=== PATIENT | male | born 1990 | race Caucasian/White ===

== ENCOUNTER → 2019-02-24 | Outpatient (REF) | payer OTHER ==
[2019-02-24 22:01] LABS: CHLAMYDIA DNA AMPLIFICATION NEGATIVE (NEGATIVE); GC DNA AMPLIFICATION NEGATIVE (NEGATIVE)
== END ==
LOC: M SFHCLERA 14:30
PROVIDERS: ATTEND Nurse Practitioner Family
DX: R35.0 Frequency of micturition (principal); J00 Acute nasopharyngitis [common cold]

== ENCOUNTER 2019-05-09 12:13 | Emergency (ER) | payer OTHER, SELFPAY ==
[~2019-05-09] VITALS: Ht 188 cm; Wt 97.5 kg
--- NOTE | 2019-05-09 13:56 | REP ---
MAXILLOFACIAL CT WITHOUT CONTRAST: HISTORY: Facial swelling. Minimal mucosal thickening is present in the left ethmoid and left maxillary sinuses. A retention cyst is present in the right maxillary sinus. The remaining sinuses are clear. The ostiomeatal units are patent. The middle and inferior nasal turbinates are partially paradoxical. There is abbi bullosa of the left middle nasal turbinate. There is minimal deviation of the nasal septum to the right. The cribriform plate, medial abdi of the orbits and optic canals are intact. The carotid canals form a segment of the posterolateral abdi of the sphenoid sinus. The sphenoid sinus septum inserts into the left internal carotid canal wall. There is minimal soft tissue swelling overlying the frontal sinuses. IMPRESSION: 1. Sinus mucosal thickening as described above. 2. Right maxillary sinus retention cyst. 3. There is minimal soft tissue swelling over the frontal sinuses. Electronically Signed by Rajeev Ann MD 05/09/2019 02:02 P
[2019-05-09] MEDS ORDERED: MOME50SP NARES (14:14)
[2019-05-09] MEDS ORDERED: AUGM875T28 PO (14:14)
[2019-05-09 14:22] VITALS: BP 132/80
== END 2019-05-09 14:24 | disposition home or self-care (01) ==
LOC: M ED 12:13
DX: F13.90 Sedative, hypnotic, or anxiolytic use, unspecified, uncomplicated (principal); R22.9 Localized swelling, mass and lump, unspecified; J34.89 Other specified disorders of nose and nasal sinuses; F17.200 Nicotine dependence, unspecified, uncomplicated

== ENCOUNTER 2020-01-20 23:01 | Inpatient (IN) | payer MEDICAID, OTHER ==
[~2020-01-20] VITALS: Ht 188 cm; Wt 99.3 kg
[~2020-01-20 23:01] MED LIST: AUGM875T28 PO; MOME50SP NARES
[2020-01-21] VITALS (14 sets, daily range): BP systolic 112–133; BP diastolic 60–71
[2020-01-21 00:46] LABS: ALBUMIN 3.3 GM/DL (3.2-5.2); ALT/SGPT 14 U/L (12-78); BASO # 0.1 10^3/uL (0.0-0.2); BASO % 0.7 % (0.0-1.0); BILIRUBIN,DIRECT < 0.1 MG/DL (0.0-0.2); BILIRUBIN,TOTAL 0.4 MG/DL (0.2-1.0); BLOOD UREA NITROGEN 15 MG/DL (7-18); CALCIUM LEVEL 8.7 MG/DL (8.5-10.1); CARBON DIOXIDE LEVEL 29 MEQ/L (21-32); CHLORIDE LEVEL 110 MEQ/L (98-107); CREATININE FOR GFR 1.23 MG/DL (0.70-1.30); EOS # 0.3 10^3/uL (0.0-0.5); EOS % 4.4 % (0.0-3.0); GLOMERULAR FILTRATION RATE > 60.0 (>60); GLUCOSE, FASTING 110 MG/DL (70-100); HEMATOCRIT 25.9 % (42.0-52.0); HEMOGLOBIN 8.4 g/dl (13.5-17.5); LIPASE 103 U/L (73-393); LYMPH # 2.4 10^3/uL (1.5-5.0); LYMPH % 31.4 % (24.0-44.0); MEAN CORPUSCULAR HGB CONC 32.4 g/dl (32.0-36.5); MEAN CORPUSCULAR VOLUME 92.5 fl (80.0-96.0); MONO # 0.5 10^3/uL (0.0-0.8); MONO % 6.3 % (0.0-5.0); NEUTROPHILS # 4.3 10^3/uL (1.5-8.5); NEUTROPHILS % 56.9 % (36.0-66.0); PLATELET COUNT, AUTOMATED 250 10^3/uL (150-450); POTASSIUM SERUM 4.1 MEQ/L (3.5-5.1); SODIUM LEVEL 141 MEQ/L (136-145); TOTAL PROTEIN 5.8 GM/DL (6.4-8.2); WHITE BLOOD COUNT 7.6 10^3/uL (4.0-10.0)
[2020-01-21] MEDS ORDERED: NS 1,000 ML IV ONE (01:45)
[2020-01-21 02:05] LABS: FERRITIN 20 NG/ML (26-388); IRON (FE) 56 UG/DL (65-175); PERCENT SATURATION 18.7 % (19.7-50.0); TOTAL IRON BINDING CAPACITY 299 UG/DL (250-450)
[2020-01-21] MEDS ORDERED: GASTROGRAFIN SOLUTION 30ML (Q9963) As Ordered ONE (02:29)
[2020-01-21] MEDS: GASTROGRAFIN SOLUTION 30ML PO SCH ×2 (02:30→02:55)
[2020-01-21] MEDS ORDERED: METAL LOCK LOOP XX ONE (03:28)
[2020-01-21] MEDS ORDERED: ISOVUE-370 76% 100ML VIAL (Q9967) As Ordered ONE (03:51)
--- NOTE | 2020-01-21 04:36 | REPVR ---
PROCEDURE INFORMATION: Exam: CT Abdomen And Pelvis With Contrast Exam date and time: 01/21/2020 1:43 AM Age: 29 years old Clinical indication: Other: Gi bleed; Additional info: Po contrast gi bleed TECHNIQUE: Imaging protocol: Computed tomography of the abdomen and pelvis with intravenous contrast. Radiation optimization: All CT scans at this facility use at least one of these dose optimization techniques: automated exposure control; mA and/or kV adjustment per patient size (includes targeted exams where dose is matched to clinical indication); or iterative reconstruction. Contrast material: ISO; Contrast volume: 100 ml; Contrast route: AC; Other contrast: Oral, ggraphin, 600; COMPARISON: No relevant prior studies available. FINDINGS: Liver: Normal. No mass. Gallbladder and bile ducts: Normal. No calcified stones. No ductal dilation. Pancreas: Normal. No ductal dilation. Spleen: Normal. No splenomegaly. Adrenals: Normal. No mass. Kidneys and ureters: Normal. No hydronephrosis. Stomach and bowel: Unremarkable. No obstruction. No mucosal thickening. Appendix: No evidence of appendicitis. Intraperitoneal space: Unremarkable. No free air. No significant fluid collection. Vasculature: Unremarkable. No abdominal aortic aneurysm. Lymph nodes: Unremarkable. No enlarged lymph nodes. Bladder: Unremarkable as visualized. Reproductive: Unremarkable as visualized. Bones/joints: Small L4-L5 disc bulge. Soft tissues: Unremarkable. IMPRESSION: No acute abnormality. Electronically signed by: Isac Andrade On 01/21/2020 04:36:19 AM
[2020-01-21 09:42] LABS: HEMATOCRIT 22.9 % (42.0-52.0); HEMOGLOBIN 7.6 g/dl (13.5-17.5)
[2020-01-21] MEDS ORDERED: diphenhydrAMINE 25 MG CAP PO ONE (12:00)
[2020-01-21] MEDS ORDERED: ACETAMINOPHEN TAB 650MG DOSE (2X325MG) PO ONE (12:00)
[2020-01-21 12:44] LABS: HEMATOCRIT 23.8 % (42.0-52.0); HEMOGLOBIN 7.8 g/dl (13.5-17.5)
--- NOTE | 2020-01-21 12:49 | HPE ---
DATE OF ADMISSION: 01/20/2020 CHIEF COMPLAINT: Rectal bleeding. HISTORY OF PRESENT ILLNESS: This is a 29-year-old male with history of attention deficit hyperactivity disorder (ADHD), depression, obsessive compulsive disorder (OCD), exercised induced asthma, bipolar disorder, prior rectal bleeding, colonoscopy in 2010 which was unremarkable, homosexual male, who presents to the emergency room with a 1-week history of "intense period", bright red blood per rectum with blood gushing out. Patient complained of "foggy brain" increased sleepiness and "without any abdominal pain" but with achiness in the left upper quadrant without fever or chills, without joint pain, muscle pain, unusual oral ulcers, prior history of rectal fissure. No weight loss. No changes in appetite. Patient denies any recent travel outside [facility]. Does not drink any well water. No recent sick contacts with others exhibiting gastroenteritis. Denies ingesting any uncooked chicken or beef. Usually makes his food at home and has been eating healthy for the past year. Patient denies any constipation or history of hemorrhoids. He complains of some shortness of breath going up the stairs. Had previous episode of rectal bleeding for about 1 year about once a week. Described pink-tinged bloody stools. Hemoglobin is 8.4 from prior hemoglobin of 14.8 in 2009. Patient admits to particular sexual practices with his male partner who is present at the bedside and is concerned about any traumatic injury causing the rectal bleeding, previous colonoscopy in [address] Quesada shows a normal colonoscopy. Patient describes some discomfort in the left upper quadrant as soreness and achiness described as 2/10 occasionally, maybe once or twice a day for the past week. No anorexia. Denies any nausea or vomiting. Patient denies hematemesis, coffee-ground emesis. Denied any nonsteroidal anti-inflammatory drug NSAID use. No prior history of peptic ulcer disease, duodenal ulcers, or gastritis. PAST MEDICAL HISTORY: ADHD. Depression. OCD Exercised induced asthma. ALLERGIES: AUGMENTIN, AMOXICILLIN causing gastrointestinal (GI) upset and diarrhea. PAST SURGICAL HISTORY: None. Had a colonoscopy in 2010 which was normal. HOME MEDICATIONS: None. The patient had previously been on Zoloft and Adderall but has not taken that for years. 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 Socially drinks alcohol, vodka with soda and water once very 2 weeks. Quit smoking now down to one or two cigarettes every 2 weeks when he goes to bars. 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 Lives with is male partner with two cats at home. FAMILY HISTORY: Mother with colonic polyps. Maternal grandfather coronary artery disease (CAD), myocardial infarction (CA), automatic implantable cardioverter defibrillator (AICD). Sister with rheumatoid arthritis. REVIEW OF SYSTEMS: Per history of present illness (HPI). 12-point system is otherwise negative. PHYSICAL EXAMINATION: Temperature 99.4, pulse 97, respiratory rate 18, blood pressure 150/75, 98% on room air. Generally, patient is a slight pallor, no icterus or jaundice. Pupils round and reactive, extraocular muscles are intact. Normocephalic, atraumatic. Tongue has minor oral ulcers. Moist mucous membranes. No cervical lymphadenopathy, thyromegaly or jugular venous distention. Lungs are clear to auscultation. No wheezing, rales or rhonchi. Heart: S1, S2, sinus rhythm. No murmurs, rubs or gallops. Abdomen soft, nontender. Positive bowel sounds times four quadrants. No rebound or guarding. Extremities: No cyanosis, clubbing or any pitting edema. LABORATORY DATA: White count 7.6, hemoglobin 8.4, hematocrit 25.9, previous hemoglobin was in 2009 14.8, hematocrit 43.6. No hemoglobin or hematocrit since 2009 for comparison. Platelet count of 250, MCV 92, MCH 30. Sodium 141, potassium 4.1, chloride 110, bicarbonate 29, BUN 15, creatinine 1.23, glucose 110, calcium 8.7, iron 56, TIBC 299, ferritin 20, T bilirubin 0.4, direct bilirubin less than 0.1. AST 12, ALT 14, alkaline phosphatase 38, total protein 5.8, albumin 1.32, lipase 103. Microbiology: GI panel is pending. CT abdomen and pelvis is pending. ASSESSMENT/PLAN: This is a 29-year-old homosexual male with history of rectal fissure, bright red blood per rectum in 2010, evaluated with colonoscopy which was essentially normal, presents with 1-week history of bright red blood per rectum increased dizziness and shortness of breath, found to have hemoglobin of 8.4, prior hemoglobin was in 2009 of 14. IMPRESSION: 1. Acute blood loss anemia secondary to bright red blood per rectum with acute GI bleed. Patient will be admitted. Check orthostatics, IV fluids, type and screen. Transfuse for hemoglobin less than 8 or symptomatic anemia. Patient, at this time did not want to be transfused despite feeling sleepy or short of breath. Check hemoglobin and hematocrit every [address] abdomen and pelvis. Rule out inflammatory bowel disease and infectious diarrhea. Check a serology panel for ulcerative colitis and Crohn's disease. Check sed rate and CRP. No empiric antibiotics until a GI panel has returned. 2. Acute GI bleed secondary to bright red blood per rectum: At this time, patient does not want blood transfusion. Will recheck hemoglobin and hematocrit every 6 hours. Transfuse a needed. Obtain CT abdomen and pelvis if persistent symptomatic anemia. Will strongly encourage to give consent for blood transfusion, possible esophagogastroduodenoscopy (EGD). Will keep with a clears diet for now. Nothing by mouth if patient develops some hematemesis or coffee-ground emesis. 3. History of ADHD, bipolar disorder and OCD. Patient is currently on no medication and says that he does not follow with any psychiatrist or primary care physician. Not exhibiting any homicidal or suicidal ideation. 4. Active smoker. Tobacco cessation counseling is provided. Nicotine gum as needed. 5. Deep venous thrombosis (DVT) prophylaxis: Compression stocking in light of active GI bleed. Avoid heparin and Lovenox products. MTDD
[2020-01-21 13:05] LABS: INR 1.1; PROTHROMBIN TIME 13.9 SECONDS (11.8-14.0)
[2020-01-21] MEDS ORDERED: LIDOCAINE 2% INJ 100 MG/5 ML SDV (FOR ANES.) As Ordered ONE (19:19)
[2020-01-21] MEDS ORDERED: propofoL 200 MG/20 ML VIAL As Ordered ONE (19:19)
--- NOTE | 2020-01-21 20:06 | ROOR ---
Patient Name: Ambrose Bradley Procedure Date: 01/21/2020 7:14 PM Date of : 1990 Age: 29 Gender: Male Note Status: Finalized Procedure: Upper GI endoscopy Indications: Acute post hemorrhagic anemia Providers: Isac OROSCO MD Referring MD: 2. Inpatient 2. Inpatient Requesting Provider: Medicines: Monitored Anesthesia Care Complications: No immediate complications. Procedure: Pre-Anesthesia Assessment: - The heart rate, respiratory rate, oxygen saturations, blood pressure, adequacy of pulmonary ventilation, and response to care were monitored throughout the procedure. The Endoscope was introduced through the mouth, and advanced to the second part of duodenum. The upper GI endoscopy was accomplished without difficulty. The patient tolerated the procedure well. Findings: The esophagus was normal. The stomach was normal. The examined duodenum was normal. Impression: - Normal esophagus. - Normal stomach. - Normal examined duodenum. - There is no evidence of upper GI bleeding on this exam. - No specimens collected. Recommendation: - Meckel scan in am 01/22 - Colonoscopy in pm 01/22 Isac Orosco MD Isac OROSCO MD 01/21/2020 8:05:33 PM Electronically signed by Isac OROSCO MD Number of Addenda: 0 Note Initiated On: 01/21/2020 7:14 PM Estimated Blood Loss: Estimated blood loss: none.
[2020-01-21] MEDS ORDERED: POLYETHYLENE GLYCOL (MIRALAX) 238GM BOTTLE PO ONE (20:15)
[2020-01-21 21:24] LABS: HEMATOCRIT 30.5 % (42.0-52.0)
[2020-01-22] VITALS (13 sets, daily range): BP systolic 109–122; BP diastolic 55–115
[2020-01-22 00:36] LABS: HEMATOCRIT 28.9 % (42.0-52.0); HEMOGLOBIN 9.6 g/dl (13.5-17.5)
[2020-01-22 06:31] LABS: HEMATOCRIT 26.5 % (42.0-52.0); HEMOGLOBIN 8.8 g/dl (13.5-17.5); MEAN CORPUSCULAR HEMOGLOBIN 30.6 pg (27.0-33.0); MEAN CORPUSCULAR HGB CONC 33.2 g/dl (32.0-36.5); PLATELET COUNT, AUTOMATED 213 10^3/uL (150-450); RED BLOOD COUNT 2.88 10^6/uL (4.30-6.10)
[2020-01-22 07:02] LABS: BLOOD UREA NITROGEN 6 MG/DL (7-18); CALCIUM LEVEL 8.5 MG/DL (8.5-10.1); CARBON DIOXIDE LEVEL 28 MEQ/L (21-32); CHLORIDE LEVEL 109 MEQ/L (98-107); GLOMERULAR FILTRATION RATE > 60.0 (>60); GLUCOSE, FASTING 89 MG/DL (70-100); POTASSIUM SERUM 3.7 MEQ/L (3.5-5.1); SODIUM LEVEL 139 MEQ/L (136-145)
--- NOTE | 2020-01-22 10:18 | IPNPDOC ---
Subjective Date Seen The patient was seen on 01/22/20. Subjective Chief Complaint/HPI seen and examined at bedside, asleep but arousable, no specific complaints. General: Reports: Normal Appetite; Denies: Chills, Night Sweats, Fatigue, Malaise Constitutional: Denies: Chills, Fever, Night Sweats Eyes: Denies: Pain, Vision change ENT: Denies: Head Aches, Ear Pain, Dysphagia Skin: Denies: Rash, Lesions, Breakdown Pulmonary: Denies: Dyspnea, Cough Cardiovascular: Denies: Chest Pain, Palpitations, Orthopnea, Paroxysmal Noc. Dyspnea, Lt Headedness Gastrointestinal: Denies: Nausea, Vomiting, Abdominal Pain, Diarrhea, Constipation Genitourinary: Denies: Dysuria, Frequency, Incontinence, Retention Hematologic: Denies: Bruising, Bleeding Excessively Musculoskeletal: Denies: Neck Pain, Back Pain, Joint Pain, Muscle Pain, Spasms Neurological: Denies: Weakness, Numbness, Change in speech, Confusion Psych: Reports: Mood Normal; Denies: Depression, Memory Issues Objective Physical Examination General Exam: Positive: Alert, No Acute Distress Eye Exam: Positive: PERRLA, Conjunctiva & lids normal, EOMI; Negative: Sclera icteric ENT Exam: Positive: Atraumatic, Mucous membr. moist/pink, Pharynx Normal Neck Exam: Positive: Supple; Negative: JVD, thyromegaly Chest Exam: Positive: Clear to auscultation, Normal air movement Heart Exam: Positive: Rate Normal, Regular Rhythm, Normal S1, Normal S2; Negative: Murmurs, Rubs Telemetry: Positive: No significant arrhythmia Abdomen Exam: Positive: Normal bowel sounds, Soft; Negative: Tenderness, Hepatospenomegaly Male Exam: Positive: Normal Genital Exam Extremity Exam: Positive: Normal pulses; Negative: Clubbing, Cyanosis, Edema Skin Exam: Positive: Nl turgor and temperature; Negative: Rash, Breakdown Neuro Exam: Positive: Normal Gait, Normal Speech, Cranial Nerves 3-12 NL, Reflexes 2+ Psych Exam: Positive: Mental status NL, Mood NL, Oriented x 3 Assessment /Plan Assessment 1. GIB - s/p PRBC transfusion, 8.8 today. - GI following, s/p EGD which was negative. - plan for Meckels scan today followed by colonoscopy later today evening. - monitor CBC, transfuse as needed, IV protonix. 2. ADHD/bipolar disorder/OCD - monitor, not on any medications. 3. tobacco use - tobacco cessation counseling. Plan/VTE VTE Prophylaxis Ordered?: Yes VS, I&O, 24H, Fishbone Vital Signs/I&O Vital Signs Date Time Temp Pulse Resp B/P (MAP) Pulse Ox O2 Delivery O2 Flow Rate FiO2 01/22/20 06:00 97.4 65 18 111/67 (82) 99 Room Air I&O- Last 24 Hours up to 6 AM 01/22/20 06:00 Intake Total 4922 ml Output Total 4025 ml Balance 897 ml Laboratory Data 24H LABS Laboratory Tests 2 01/21/20 12:16: Prothrombin Time 13.9, Prothromb Time International Ratio 1.10 01/22/20 06:10: Nucleated Red Blood Cells % (auto) 0.0, Anion Gap 2L, Glomerular Filtration Rate > 60.0, Calcium Level 8.5 CBC/BMP Laboratory Tests 01/21/20 12:16 01/21/20 21:12 01/22/20 00:30 01/22/20 06:10 Microbiology Microbiology 01/21/20 Stool Occult Blood (RON) - Final, Complete 01/21/20 Gastrointestinal Tract Panel (PCR) - Final, Complete CHUCK NORWOOD MD Jan 22, 2020 10:18
--- NOTE | 2020-01-22 12:29 | REP ---
RADIONUCLIDE MECKEL'S SCAN: HISTORY: Evaluate for Meckel's diverticulum. Comparison CT study January 21, 2020. TECHNIQUE: 10.5 mCi technetium 99m pertechnetate is injected and anterior flow and sequential 1-minute images are acquired. Anterior and right lateral planar images are acquired after the initial hour of imaging. SCINTIGRAPHIC FINDINGS: The flow study is normal. Sequential 1-minute images demonstrate no evidence of focal gastrointestinal uptake in the lower abdomen on either side to suggest a gastric mucosa containing Meckel's diverticulum. IMPRESSION: Negative Meckel's scan. Electronically Signed by Geovani Rankin MD 01/22/2020 05:06 P
[2020-01-22 13:28] LABS: HEMATOCRIT 27.1 % (42.0-52.0); HEMOGLOBIN 9.1 g/dl (13.5-17.5)
--- NOTE | 2020-01-22 16:21 | ROOR ---
Patient Name: Amrbose Bradley Procedure Date: 01/22/2020 3:56 PM Date of : 1990 Age: 29 Room: [facility] Gender: Male Note Status: Finalized Procedure: Colonoscopy Indications: Hematochezia, Acute post hemorrhagic anemia Providers: Isac OROSCO MD Referring MD: 2. Inpatient 2. Inpatient Requesting Provider: Medicines: Monitored Anesthesia Care Complications: No immediate complications. Procedure: Pre-Anesthesia Assessment: - The heart rate, respiratory rate, oxygen saturations, blood pressure, adequacy of pulmonary ventilation, and response to care were monitored throughout the procedure. The Colonoscope was introduced through the anus and advanced to 10 cm into the ileum. The colonoscopy was performed without difficulty. The patient tolerated the procedure well. The quality of the bowel preparation was adequate. Findings: The perianal and digital rectal examinations were normal. Internal hemorrhoids were found during retroflexion. The hemorrhoids were moderate. The colon (entire examined portion) appeared normal. The terminal ileum appeared normal. Impression: - Internal hemorrhoids. - The entire examined colon is normal. - The examined portion of the ileum was normal. - No specimens collected. Recommendation: - Suggest referral to a surgeon for Hemorrhoid surgery. - Return to primary care physician as previously scheduled. - Routine follow up with me is not necessary. Can follow up with me as needed. Isac Orosco MD Isac OROSCO MD 01/22/2020 4:21:30 PM Electronically signed by Isac OROSCO MD Number of Addenda: 0 Note Initiated On: 01/22/2020 3:56 PM Estimated Blood Loss: Estimated blood loss: none.
[2020-01-22 18:22] LABS: HEMATOCRIT 27.6 % (42.0-52.0); HEMOGLOBIN 9.1 g/dl (13.5-17.5)
[2020-01-23 00:36] LABS: HEMOGLOBIN 8.6 g/dl (13.5-17.5)
[2020-01-23 02:30] VITALS: BP 118/58
[2020-01-23 06:00] VITALS: BP 121/57
[2020-01-23 07:16] LABS: HEMATOCRIT 23.6 % (42.0-52.0); MEAN CORPUSCULAR HEMOGLOBIN 31.1 pg (27.0-33.0); MEAN CORPUSCULAR HGB CONC 33.9 g/dl (32.0-36.5); MEAN CORPUSCULAR VOLUME 91.8 fl (80.0-96.0); PLATELET COUNT, AUTOMATED 241 10^3/uL (150-450); RED BLOOD COUNT 2.57 10^6/uL (4.30-6.10); WHITE BLOOD COUNT 5.9 10^3/uL (4.0-10.0)
[2020-01-23 07:41] LABS: BLOOD UREA NITROGEN 14 MG/DL (7-18); CALCIUM LEVEL 7.7 MG/DL (8.5-10.1); CARBON DIOXIDE LEVEL 29 MEQ/L (21-32); CHLORIDE LEVEL 110 MEQ/L (98-107); CREATININE FOR GFR 0.98 MG/DL (0.70-1.30); GLOMERULAR FILTRATION RATE > 60.0 (>60); GLUCOSE, FASTING 92 MG/DL (70-100); POTASSIUM SERUM 3.9 MEQ/L (3.5-5.1); SODIUM LEVEL 142 MEQ/L (136-145)
[2020-01-23 10:00] VITALS: BP 120/56
[2020-01-23] MEDS ORDERED: PREP1SUP PR (13:15)
--- NOTE | 2020-01-23 13:16 | DS.PDOC ---
Discharge Summary General Date of Admission Jan 21, 2020 at 15:40 Date of Discharge 01/23/20 Discharge Summary PROCEDURES PERFORMED DURING STAY: Colonoscopy: - Internal hemorrhoids. - The entire examined colon is normal. - The examined portion of the ileum was normal. - No specimens collected. ADMITTING DIAGNOSES: 1. rectal bleed DISCHARGE DIAGNOSES: 1. rectal bleed COMPLICATIONS/CHIEF COMPLAINT: Rectal Bleeding. HISTORY OF PRESENT ILLNESS: Please refer to for detailed HPI. HOSPITAL COURSE: Patient was admitted and treated for the following conditions: 1. GIB - patient received 1U PRBC transfusion. - GI was consulted. - EGD/Meckel's scan negative. - colonoscopy with internal hemorrhoids. - GI recommending follow up with surgery for banding. - case discussed with surgery Dr. Cast, recommending outpatient office follow up on 01/26 for banding procedure. - preparation H suppositories, high fiber diet/fibercon supplement, sitz baths. - Patient is in agreement with plan, advised him to return to the ED should he have persistent rectal bleeding, voices understanding. DISCHARGE MEDICATIONS: Please see below. ALLERGIES: Please see below. PHYSICAL EXAMINATION ON DISCHARGE: VITAL SIGNS: Please see below. GENERAL: AAO x 3, NAD. HEENT: NCAT, anicteric sclera, PERRLA/EOMI NECK: supple, no JVD, no thyromegaly CARDIOVASCULAR EXAMINATION: NS1S2, regular, no murmurs/rubs RESPIRATORY EXAMINATION: CTA b/l, no wheezing, rales, rhonchi. ABDOMINAL EXAMINATION: NT/ND, positive bowel sounds, no masses EXTREMITIES: no cyanosis, clubbing, edema SKIN: warm, no rashes, NEUROLOGICAL EXAMINATION: AAO x 3, no motor/sensory deficits, PSYCHIATRIC EXAMINATION: calm, cooperative, normal affect. LABORATORY DATA: Please see below. IMAGING: none PROGNOSIS: good ACTIVITY: [As tolerated]. DIET: high fiber DISCHARGE PLAN: home DISPOSITION: stable DISCHARGE INSTRUCTIONS: 1. Schedule follow up appointment with surgery Dr. Cast. ITEMS TO FOLLOWUP ON ON OUTPATIENT: 1. none DISCHARGE CONDITION: [Stable]. TIME SPENT ON DISCHARGE: Greater than [30] minutes. Vital Signs/I&Os Vital Signs Date Time Temp Pulse Resp B/P (MAP) Pulse Ox O2 Delivery O2 Flow Rate FiO2 01/23/20 10:00 97.4 94 19 120/56 (77) 96 Room Air I&O- Last 24 Hours up to 6 AM 01/23/20 06:00 Intake Total 360 ml Output Total 1175 ml Balance -815 ml Laboratory Data Labs 24H Laboratory Tests 2 01/23/20 06:48: Nucleated Red Blood Cells % (auto) 0.0, Anion Gap 3L, Glomerular Filtration Rate > 60.0, Calcium Level 7.7L CBC/BMP Laboratory Tests 01/22/20 18:09 01/23/20 00:22 01/23/20 06:48 Microbiology Microbiology 01/21/20 Stool Occult Blood (RON) - Final, Complete 01/21/20 Gastrointestinal Tract Panel (PCR) - Final, Complete Discharge Medications Scheduled Phenylephrine HCl/[place] Butter (Preparation H Suppository) 1 Each Supp.rect, 1 SUP AK BID Allergies Coded Allergies: No Known Allergies (Unverified , 05/09/19) CHUCK NORWOOD MD Jan 23, 2020 13:16
[2020-01-23 14:00] VITALS: BP 138/65
[2020-01-23] MEDS ORDERED: FERR325T3 PO (14:01)
--- NOTE | 2020-01-23 17:16 | IPNPDOC ---
Subjective Date Seen The patient was seen on 01/23/20. Subjective Chief Complaint/HPI seen and examined at bedside, c/o bloody stools still continuing today, anxious about discharge. General: Reports: Normal Appetite; Denies: Chills, Night Sweats, Fatigue, Malaise Constitutional: Denies: Chills, Fever, Night Sweats Eyes: Denies: Pain, Vision change ENT: Denies: Head Aches, Ear Pain, Dysphagia Skin: Denies: Rash, Lesions, Breakdown Pulmonary: Denies: Dyspnea, Cough Cardiovascular: Denies: Chest Pain, Palpitations, Orthopnea, Paroxysmal Noc. Dyspnea, Lt Headedness Gastrointestinal: Denies: Nausea, Vomiting, Abdominal Pain, Diarrhea, Constipation Genitourinary: Denies: Dysuria, Frequency, Incontinence, Retention Hematologic: Denies: Bruising, Bleeding Excessively Musculoskeletal: Denies: Neck Pain, Back Pain, Joint Pain, Muscle Pain, Spasms Neurological: Denies: Weakness, Numbness, Change in speech, Confusion Psych: Reports: Mood Normal; Denies: Depression, Memory Issues Objective Physical Examination General Exam: Positive: Alert, No Acute Distress Eye Exam: Positive: PERRLA, Conjunctiva & lids normal, EOMI; Negative: Sclera icteric ENT Exam: Positive: Atraumatic, Mucous membr. moist/pink, Pharynx Normal Neck Exam: Positive: Supple; Negative: JVD, thyromegaly Chest Exam: Positive: Clear to auscultation, Normal air movement Heart Exam: Positive: Rate Normal, Regular Rhythm, Normal S1, Normal S2; Negative: Murmurs, Rubs Telemetry: Positive: No significant arrhythmia Abdomen Exam: Positive: Normal bowel sounds, Soft; Negative: Tenderness, Hepatospenomegaly Male Exam: Positive: Normal Genital Exam Extremity Exam: Positive: Normal pulses; Negative: Clubbing, Cyanosis, Edema Skin Exam: Positive: Nl turgor and temperature; Negative: Rash, Breakdown Neuro Exam: Positive: Normal Gait, Normal Speech, Cranial Nerves 3-12 NL, Reflexes 2+ Psych Exam: Positive: Mental status NL, Mood NL, Oriented x 3 Assessment /Plan Assessment 1. GIB - Hgb 8 today. - s/p EGD/Meckels scan, negative. - colonoscopy with internal hemorrhoids. - patient with continued episodes of bleeding, anxious about discharge with continuing episodes. - discussed with surgery Dr. Griggs, will see in AM. - start suppositories, monitor CBC. 2. ADHD/bipolar disorder/OCD - monitor, not on any medications. 3. tobacco use - tobacco cessation counseling. Plan/VTE VTE Prophylaxis Ordered?: Yes VS, I&O, 24H, Fishbone Vital Signs/I&O Vital Signs Date Time Temp Pulse Resp B/P (MAP) Pulse Ox O2 Delivery O2 Flow Rate FiO2 01/23/20 14:00 97.6 82 19 138/65 (89) 97 01/23/20 10:00 Room Air I&O- Last 24 Hours up to 6 AM 01/23/20 06:00 Intake Total 360 ml Output Total 1175 ml Balance -815 ml Laboratory Data 24H LABS Laboratory Tests 2 01/23/20 06:48: Nucleated Red Blood Cells % (auto) 0.0, Anion Gap 3L, Glomerular Filtration Rate > 60.0, Calcium Level 7.7L CBC/BMP Laboratory Tests 01/22/20 18:09 01/23/20 00:22 01/23/20 06:48 Microbiology Microbiology 01/21/20 Stool Occult Blood (RON) - Final, Complete 01/21/20 Gastrointestinal Tract Panel (PCR) - Final, Complete CHUCK NORWOOD MD Jan 23, 2020 17:16
[2020-01-23] MEDS: PREPARATION H SUPP (HEMORRHOID) PR SCH (20:04)
[2020-01-23 22:00] VITALS: BP 128/69
[2020-01-24] VITALS (14 sets, daily range): BP systolic 106–135; BP diastolic 56–60
[2020-01-24 07:00] LABS: HEMATOCRIT 22.2 % (42.0-52.0); HEMOGLOBIN 7.4 g/dl (13.5-17.5); MEAN CORPUSCULAR HGB CONC 33.3 g/dl (32.0-36.5); MEAN CORPUSCULAR VOLUME 92.9 fl (80.0-96.0); PLATELET COUNT, AUTOMATED 258 10^3/uL (150-450); RED BLOOD COUNT 2.39 10^6/uL (4.30-6.10); WHITE BLOOD COUNT 6.1 10^3/uL (4.0-10.0)
[2020-01-24 07:26] LABS: BLOOD UREA NITROGEN 13 MG/DL (7-18); CALCIUM LEVEL 8.4 MG/DL (8.5-10.1); CARBON DIOXIDE LEVEL 29 MEQ/L (21-32); CHLORIDE LEVEL 109 MEQ/L (98-107); CREATININE FOR GFR 0.92 MG/DL (0.70-1.30); GLOMERULAR FILTRATION RATE > 60.0 (>60); GLUCOSE, FASTING 93 MG/DL (70-100); POTASSIUM SERUM 4.4 MEQ/L (3.5-5.1); SODIUM LEVEL 141 MEQ/L (136-145)
[2020-01-24] MEDS ORDERED: PREPARATION H SUPP (HEMORRHOID) PR SCH (09:00)
[2020-01-24] MEDS: PREPARATION H SUPP (HEMORRHOID) PR SCH ×4 (09:24→21:00)
--- NOTE | 2020-01-24 14:46 | IPNPDOC ---
Subjective Date Seen The patient was seen on 01/24/20. Subjective Chief Complaint/HPI seen and examined at bedside, still with c/o rectal bleeding, some improvement with suppositories. General: Reports: Normal Appetite; Denies: Chills, Night Sweats, Fatigue, Malaise Constitutional: Denies: Chills, Fever, Night Sweats Eyes: Denies: Pain, Vision change ENT: Denies: Head Aches, Ear Pain, Dysphagia Skin: Denies: Rash, Lesions, Breakdown Pulmonary: Denies: Dyspnea, Cough Cardiovascular: Denies: Chest Pain, Palpitations, Orthopnea, Paroxysmal Noc. Dyspnea, Lt Headedness Gastrointestinal: Denies: Nausea, Vomiting, Abdominal Pain, Diarrhea, Constipation Genitourinary: Denies: Dysuria, Frequency, Incontinence, Retention Hematologic: Denies: Bruising, Bleeding Excessively Musculoskeletal: Denies: Neck Pain, Back Pain, Joint Pain, Muscle Pain, Spasms Neurological: Denies: Weakness, Numbness, Change in speech, Confusion Psych: Reports: Mood Normal; Denies: Depression, Memory Issues Objective Physical Examination General Exam: Positive: Alert, No Acute Distress Eye Exam: Positive: PERRLA, Conjunctiva & lids normal, EOMI; Negative: Sclera icteric ENT Exam: Positive: Atraumatic, Mucous membr. moist/pink, Pharynx Normal Neck Exam: Positive: Supple; Negative: JVD, thyromegaly Chest Exam: Positive: Clear to auscultation, Normal air movement Heart Exam: Positive: Rate Normal, Regular Rhythm, Normal S1, Normal S2; Negative: Murmurs, Rubs Telemetry: Positive: No significant arrhythmia Abdomen Exam: Positive: Normal bowel sounds, Soft; Negative: Tenderness, Hepatospenomegaly Male Exam: Positive: Normal Genital Exam Extremity Exam: Positive: Normal pulses; Negative: Clubbing, Cyanosis, Edema Skin Exam: Positive: Nl turgor and temperature; Negative: Rash, Breakdown Neuro Exam: Positive: Normal Gait, Normal Speech, Cranial Nerves 3-12 NL, Reflexes 2+ Psych Exam: Positive: Mental status NL, Mood NL, Oriented x 3 Assessment /Plan Assessment 1. hemorrhoidal bleed - Hgb 7.4 today, d/c held due to continued bleeding, surgery consulted. - s/p EGD/Meckels scan, negative. - colonoscopy with internal hemorrhoids. - seen by surgery today, increased suppositories to QID. - transfuse 2U PRBC, repeat Hgb. - discussed the plan at length with patient and his mother, they are in a greement. 2. ADHD/bipolar disorder/OCD - monitor, not on any medications. 3. tobacco use - tobacco cessation counseling. Plan/VTE VTE Prophylaxis Ordered?: Yes VS, I&O, 24H, Fishbone Vital Signs/I&O Vital Signs Date Time Temp Pulse Resp B/P (MAP) Pulse Ox O2 Delivery O2 Flow Rate FiO2 01/24/20 13:48 98.5 73 16 123/56 96 Room Air I&O- Last 24 Hours up to 6 AM 01/24/20 06:00 Intake Total 1550 ml Output Total 1250 ml Balance 300 ml Laboratory Data 24H LABS Laboratory Tests 2 01/24/20 05:56: Nucleated Red Blood Cells % (auto) 0.0, Anion Gap 3L, Glomerular Filtration Rate > 60.0, Calcium Level 8.4L CBC/BMP Laboratory Tests 01/24/20 05:56 Microbiology Microbiology 01/21/20 Stool Occult Blood (RON) - Final, Complete 01/21/20 Gastrointestinal Tract Panel (PCR) - Final, Complete CHUCK NORWOOD MD Jan 24, 2020 14:46
[2020-01-24] MEDS ORDERED: ACETAMINOPHEN TAB 650MG DOSE (2X325MG) PO ONE (15:00)
[2020-01-24 18:36] LABS: BASO # 0.1 10^3/uL (0.0-0.2); BASO % 0.9 % (0.0-1.0); EOS # 0.5 10^3/uL (0.0-0.5); EOS % 6.4 % (0.0-3.0); HEMATOCRIT 28.7 % (42.0-52.0); LYMPH # 2.7 10^3/uL (1.5-5.0); LYMPH % 35.9 % (24.0-44.0); MEAN CORPUSCULAR HGB CONC 33.8 g/dl (32.0-36.5); MEAN CORPUSCULAR VOLUME 91.7 fl (80.0-96.0); MONO # 0.8 10^3/uL (0.0-0.8); MONO % 10.1 % (0.0-5.0); NEUTROPHILS # 3.5 10^3/uL (1.5-8.5); NEUTROPHILS % 46.6 % (36.0-66.0); PLATELET COUNT, AUTOMATED 292 10^3/uL (150-450); RED BLOOD COUNT 3.13 10^6/uL (4.30-6.10); WHITE BLOOD COUNT 7.5 10^3/uL (4.0-10.0)
[2020-01-24 18:52] LABS: HEMOGLOBIN 9.7 g/dl (13.5-17.5)
[2020-01-25 06:00] VITALS: BP 117/66
[2020-01-25 06:18] LABS: HEMOGLOBIN 8.1 g/dl (13.5-17.5); MEAN CORPUSCULAR HGB CONC 33.8 g/dl (32.0-36.5); PLATELET COUNT, AUTOMATED 260 10^3/uL (150-450); RED BLOOD COUNT 2.61 10^6/uL (4.30-6.10); WHITE BLOOD COUNT 6.5 10^3/uL (4.0-10.0)
[2020-01-25 06:44] LABS: BLOOD UREA NITROGEN 15 MG/DL (7-18); CALCIUM LEVEL 8.4 MG/DL (8.5-10.1); CARBON DIOXIDE LEVEL 29 MEQ/L (21-32); CHLORIDE LEVEL 111 MEQ/L (98-107); CREATININE FOR GFR 0.98 MG/DL (0.70-1.30); GLOMERULAR FILTRATION RATE > 60.0 (>60); GLUCOSE, FASTING 98 MG/DL (70-100); POTASSIUM SERUM 3.8 MEQ/L (3.5-5.1); SODIUM LEVEL 141 MEQ/L (136-145)
--- NOTE | 2020-01-25 08:58 | IPNPDOC ---
Subjective Date Seen The patient was seen on 01/25/20. Subjective Chief Complaint/HPI seen and examined at bedside, still with episodes of bleeding overnight. General: Reports: Normal Appetite; Denies: Chills, Night Sweats, Fatigue, Malaise Constitutional: Denies: Chills, Fever, Night Sweats Eyes: Denies: Pain, Vision change ENT: Denies: Head Aches, Ear Pain, Dysphagia Skin: Denies: Rash, Lesions, Breakdown Pulmonary: Denies: Dyspnea, Cough Cardiovascular: Denies: Chest Pain, Palpitations, Orthopnea, Paroxysmal Noc. Dyspnea, Lt Headedness Gastrointestinal: Denies: Nausea, Vomiting, Abdominal Pain, Diarrhea, Constipation Genitourinary: Denies: Dysuria, Frequency, Incontinence, Retention Hematologic: Denies: Bruising, Bleeding Excessively Musculoskeletal: Denies: Neck Pain, Back Pain, Joint Pain, Muscle Pain, Spasms Neurological: Denies: Weakness, Numbness, Change in speech, Confusion Psych: Reports: Mood Normal; Denies: Depression, Memory Issues Objective Physical Examination General Exam: Positive: Alert, No Acute Distress Eye Exam: Positive: PERRLA, Conjunctiva & lids normal, EOMI; Negative: Sclera icteric ENT Exam: Positive: Atraumatic, Mucous membr. moist/pink, Pharynx Normal Neck Exam: Positive: Supple; Negative: JVD, thyromegaly Chest Exam: Positive: Clear to auscultation, Normal air movement Heart Exam: Positive: Rate Normal, Regular Rhythm, Normal S1, Normal S2; Negative: Murmurs, Rubs Telemetry: Positive: No significant arrhythmia Abdomen Exam: Positive: Normal bowel sounds, Soft; Negative: Tenderness, Hepatospenomegaly Male Exam: Positive: Normal Genital Exam Extremity Exam: Positive: Normal pulses; Negative: Clubbing, Cyanosis, Edema Skin Exam: Positive: Nl turgor and temperature, Other skin issue (bump noted a bridge of nose extending into scalp, no erythema.); Negative: Rash, Breakdown Neuro Exam: Positive: Normal Gait, Normal Speech, Cranial Nerves 3-12 NL, Reflexes 2+ Psych Exam: Positive: Mental status NL, Mood NL, Oriented x 3 Assessment /Plan Assessment 1. hemorrhoidal bleed - patient s/p 2U PRBC transfusion yesterday, Hgb 8.1 today, bleeding episodes persisting overnight. - surgery following. - s/p EGD/Meckels scan, negative. - colonoscopy with internal hemorrhoids. - s/p banding at bedside by surgery Dr. Cast. - recheck Hgb 8.9 - plan to monitor overnight, recheck Hgb in AM, if stable can discharge. 2. ADHD/bipolar disorder/OCD - monitor, not on any medications. 3. tobacco use - tobacco cessation counseling. 4. forehead mass - US to better evaluate. - ?fibroid. Plan/VTE VTE Prophylaxis Ordered?: Yes VS, I&O, 24H, Fishbone Vital Signs/I&O Vital Signs Date Time Temp Pulse Resp B/P (MAP) Pulse Ox O2 Delivery O2 Flow Rate FiO2 01/25/20 06:00 98.4 71 15 117/66 (83) 97 Room Air I&O- Last 24 Hours up to 6 AM 01/25/20 05:59 Intake Total 3030 ml Output Total 1200 ml Balance 1830 ml Laboratory Data 24H LABS Laboratory Tests 2 01/24/20 18:27: Immature Granulocyte % (Auto) 0.1, Neutrophils (%) (Auto) 46.6, Lymphocytes (%) (Auto) 35.9, Monocytes (%) (Auto) 10.1H, Eosinophils (%) (Auto) 6.4H, Basophils (%) (Auto) 0.9, Neutrophils # (Auto) 3.5, Lymphocytes # (Auto) 2.7, Monocytes # (Auto) 0.8, Eosinophils # (Auto) 0.5, Basophils # (Auto) 0.1, Nucleated Red Blood Cells % (auto) 0.0 01/25/20 05:44: Nucleated Red Blood Cells % (auto) 0.0, Anion Gap 1L, Glomerular Filtration Rate > 60.0, Calcium Level 8.4L CBC/BMP Laboratory Tests 01/24/20 18:27 01/25/20 05:44 Microbiology Microbiology 01/21/20 Stool Occult Blood (RON) - Final, Complete 01/21/20 Gastrointestinal Tract Panel (PCR) - Final, Complete CHUCK NORWOOD MD Jan 25, 2020 08:58
[2020-01-25] MEDS: PREPARATION H SUPP (HEMORRHOID) PR SCH ×4 (09:24→20:31)
--- NOTE | 2020-01-25 12:15 | REP ---
ULTRASOUND FACIAL SOFT TISSUES: Real-time sonographic evaluation of the facial soft tissues performed at the site of swelling at the midline of the forehead. No discrete cystis or solid mass is seen. No fluid collection is seen. IMPRESSION: Negative ultrasound of the soft tissues of the forehead in the midline at the site of the reported palpable lump and swelling. Electronically Signed by Irvin Menchaca MD 01/25/2020 03:58 P
[2020-01-25] MEDS ORDERED: ACETAMINOPHEN TAB 650MG DOSE (2X325MG) PO ONE (13:00)
[2020-01-25 14:00] VITALS: BP 133/82
[2020-01-25] MEDS ORDERED: KETOROLAC 30 MG/ML VIAL (J1885) IV PRN (15:15)
[2020-01-25 15:16] LABS: HEMATOCRIT 26.9 % (42.0-52.0); HEMOGLOBIN 8.9 g/dl (13.5-17.5); MEAN CORPUSCULAR HEMOGLOBIN 30.9 pg (27.0-33.0); MEAN CORPUSCULAR HGB CONC 33.1 g/dl (32.0-36.5); MEAN CORPUSCULAR VOLUME 93.4 fl (80.0-96.0); PLATELET COUNT, AUTOMATED 288 10^3/uL (150-450); RED BLOOD COUNT 2.88 10^6/uL (4.30-6.10); WHITE BLOOD COUNT 8.5 10^3/uL (4.0-10.0)
--- NOTE | 2020-01-25 20:13 | IPNPDOC ---
Text Note Date of Service The patient was seen on 01/25/20. NOTE No acute events overnight. He had 2 units of PRBCs yesterday, and this am his HGB is back down again. He has been using the suppositories, but he is still bleeding alot with every bowel movement. VSSAF NAD abd - soft, NT, ND labs - below A) 29y/o male with bleeding internal hemorrhoids that have failed medical treatment P) since he is still bleeding, I planned to do banding at his bedside. After obtaining consent from him, he was placed in the right lateral decubitus position. Next, the anoscope was inserted and the perirectal area was all swollen, inflammed, bleeding hemorrhoids. I placed the first band on the left lateral, and then another one on the right posterior. Once the two bands were in place, the anoscope was removed thus ending the procedure. He can continue with his suppositories, and then if repeat hgb is stable this evening, then he can go home. Follow up in office in one month. Agus Cast DO VSJessica, I+O VS, Jessica, I+O Laboratory Tests 01/25/20 05:44 01/25/20 14:54 Vital Signs Date Time Temp Pulse Resp B/P (MAP) Pulse Ox O2 Delivery O2 Flow Rate FiO2 01/25/20 14:00 98.5 78 18 133/82 (99) 100 Room Air I&O- Last 24 Hours up to 6 AM 01/25/20 06:00 Intake Total 3030 ml Output Total 1200 ml Balance 1830 ml JOLENE CAST DO Jan 25, 2020 20:13
[2020-01-25 22:00] VITALS: BP 117/65
[2020-01-26] VITALS (7 sets, daily range): BP systolic 113–125; BP diastolic 73–76
[2020-01-26 05:16] LABS: HEMATOCRIT 23.4 % (42.0-52.0); HEMOGLOBIN 7.8 g/dl (13.5-17.5); MEAN CORPUSCULAR HGB CONC 33.3 g/dl (32.0-36.5); MEAN CORPUSCULAR VOLUME 92.9 fl (80.0-96.0); PLATELET COUNT, AUTOMATED 277 10^3/uL (150-450); RED BLOOD COUNT 2.52 10^6/uL (4.30-6.10); WHITE BLOOD COUNT 11.6 10^3/uL (4.0-10.0)
[2020-01-26 05:39] LABS: BLOOD UREA NITROGEN 19 MG/DL (7-18); CALCIUM LEVEL 8.1 MG/DL (8.5-10.1); CARBON DIOXIDE LEVEL 27 MEQ/L (21-32); CHLORIDE LEVEL 110 MEQ/L (98-107); CREATININE FOR GFR 0.85 MG/DL (0.70-1.30); GLOMERULAR FILTRATION RATE > 60.0 (>60); GLUCOSE, FASTING 100 MG/DL (70-100); SODIUM LEVEL 142 MEQ/L (136-145)
[2020-01-26] MEDS: PREPARATION H SUPP (HEMORRHOID) PR SCH (09:32)
[2020-01-26 11:20] LABS: HEMATOCRIT 22.5 % (42.0-52.0); HEMOGLOBIN 7.6 g/dl (13.5-17.5)
[2020-01-26 14:16] LABS: Chitobioside Carbohydrat (ACCA 44 units (0-90); Laminaribioside Carbohyd (ALCA 3 units (0-60); Mannobioside Carbohydrat (AMCA 8 units (0-100); Saccharomyces cerevisiae IgG A 14 units (0-50)
--- NOTE | 2020-01-26 16:50 | DS.PDOC ---
Discharge Summary General Date of Admission Jan 21, 2020 at 15:40 Date of Discharge 01/26/2020 Discharge Summary PROCEDURES PERFORMED DURING STAY: Colonoscopy 01/22/[address] Orosco - found internal hemorrhoids Hemorrhoidal banding 01/25/[address] Cast ADMITTING DIAGNOSES / DISCHARGE DIAGNOSES: Acute blood loss anemia - likely 2/2 internal hemorrhoidal bleed - s/p banding on 01/25 ADHD/bipolar disorder/OCD Tobacco use Forehead lump DVT prophylaxis COMPLICATIONS/CHIEF COMPLAINT: Rectal Bleeding. HISTORY OF PRESENT ILLNESS: Patient is a 29-year-old male with a PMHx of ADHD, Depression, OCD, Exercise induced asthma , who presented to the emergency room with complaints of bright red rectal bleeding. Patient has reported that he's been experiencing episodes of this over the course of 1 week. Patient has also reported symptoms of lightheadedness and dizziness. Upon graduation emergency room, patient was found to have a hemoglobin of 8.4 which is down from his baseline of a proxi esperanza 14.8. Patient was admitted to the hospitalist service for further evaluation and treatment. Gastroenterology and general surgery were called on consultation. HOSPITAL COURSE: Acute blood loss anemia - likely 2/2 LGIB - 2/2 hemorrhoidal bleed - Upon arrival, patient had symptoms of symptomatic anemia - Currently, patient remains asymptomatic - Hg has remained stable - s/p 4 units of PRBC transfusion; will provide additional unit of PRBC prior to discharge - c/w Iron supplementation upon discharge - Will have outpatient f/u with Surgery within 7 days - Patient has been provided a script for H&H 2 days from discharge ADHD/bipolar disorder/OCD - Currently not on any medications Tobacco use - Recommend stopping smoking Forehead lump - US forehead 01/25: Negative ultrasound of the soft tissues of the forehead in the midline at the site of the reported palpable lump and swelling. - Will have outpatient follow-up with primary care provider DVT prophylaxis - c/w TEDs / Sequentials DISCHARGE MEDICATIONS: Please see below. ALLERGIES: Please see below. PHYSICAL EXAMINATION ON DISCHARGE: Vitals (See below) General: Lying in bed, no acute distress, comfortable, AAOx3 HEENT: NC, AT CVS: +S1S2 Lungs: Fair air entry b/l, -w/r/r Abdomen: Soft, ND, NT Extremities: - Edema, - Calf tenderness LABORATORY DATA: Please see below. ACTIVITY: [As tolerated]. DISCHARGE PLAN: Follow up with PCP and Dr. Cast within 7 days Remain compliant with treatment plan and medications Return to the ER if you experience any problems DISPOSITION: Home DISCHARGE CONDITION: [Stable]. TIME SPENT ON DISCHARGE: 35 minutes Vital Signs/I&Os Vital Signs Date Time Temp Pulse Resp B/P (MAP) Pulse Ox O2 Delivery O2 Flow Rate FiO2 01/26/20 14:00 98.4 86 17 113/73 (86) 98 Room Air I&O- Last 24 Hours up to 6 AM 01/26/20 06:00 Intake Total 2170 ml Output Total 1075 ml Balance 1095 ml Laboratory Data Labs 24H Laboratory Tests 2 01/26/20 05:01: Nucleated Red Blood Cells % (auto) 0.0, Anion Gap 5L, Glomerular Filtration Rate > 60.0, Calcium Level 8.1L CBC/BMP Laboratory Tests 01/26/20 05:01 01/26/20 11:07 Microbiology Microbiology 01/21/20 Stool Occult Blood (RON) - Final, Complete 01/21/20 Gastrointestinal Tract Panel (PCR) - Final, Complete Discharge Medications Scheduled Ferrous Sulfate (Ferrous Sulfate) 325 Mg Tablet.dr, 1 TAB PO BID Phenylephrine HCl/[place] Butter (Preparation H Suppository) 1 Each Supp.rect, 1 SUP IN BID Allergies Coded Allergies: No Known Allergies (Unverified , 05/09/19) PRATIK NORWOOD MD Jan 26, 2020 16:50
--- NOTE | 2020-01-26 17:04 | IPNPDOC ---
Text Note Date of Service The patient was seen on 01/26/20. NOTE No acute events overnight. He feels like the bleeding has improved some, but it is still present with each bowel movement. VSSAF NAD abd - soft, NT, ND labs - below A) 29y/o male with bleeding internal hemorrhoids that have failed medical treatment POD#1 s/p banding P) continue with suppositories QID transfuse 2 more units, and then discharge once stable. if still bleeding then he may benefit from a short course of steroids f/u in office in 4 weeks. Agus Cast DO VS,Júniore, I+O VS, Júniore, I+O Laboratory Tests 01/26/20 05:01 01/26/20 11:07 Vital Signs Date Time Temp Pulse Resp B/P (MAP) Pulse Ox O2 Delivery O2 Flow Rate FiO2 01/26/20 16:55 99.6 78 18 122/74 Room Air 01/26/20 14:00 98 I&O- Last 24 Hours up to 6 AM 01/26/20 06:00 Intake Total 2170 ml Output Total 1075 ml Balance 1095 ml JOLENE CAST DO Jan 26, 2020 17:04
--- NOTE | 2020-01-27 00:06 | CR ---
DATE OF CONSULTATION: 01/24/2020 REASON FOR CONSULTATION: Rectal bleeding. HISTORY OF PRESENT ILLNESS: The patient is a 29-year-old male with a history of rectal bleeding for about a year. It has been getting very persistent for the past week and half. He came into the hospital due to rectal bleeding. He was anemic. He has been given a few units of blood so far. Gastroenterology was consulted, did a colonoscopy that revealed all he had was internal hemorrhoids and recommended surgical evaluation. Currently, he is still bleeding with every bowel movement. There is brown stool with each bowel movement but large volumes of blood as well. He was started on suppositories. No signs of any improvement at this point. Bowels are normally regular. No other complaints and no other problems. No abdominal pains. PAST MEDICAL HISTORY: Attention-deficit hyperactivity disorder (ADHD). Depression. Obsessive-compulsive disorder (OCD). Asthma. PAST SURGICAL HISTORY: None. ALLERGIES: AUGMENTIN, AMOXICILLIN. HOME MEDICATIONS: None. SOCIAL HISTORY: Social alcohol usage. No drug or tobacco abuse. FAMILY HISTORY: Noncontributory. REVIEW OF SYSTEMS: Pertinent positives and negatives as stated in the history of the present illness. PHYSICAL EXAMINATION: General: Alert and oriented times three, in no acute distress. Vital Signs: Temperature 98.3, pulse 82, respirations 16, blood pressure 114/60, pulse oximetry 90% on room air. HEENT: Pupils equally round and reactive to light and accommodation. Heart: S1, S2, regular rate and rhythm. Lungs: Clear to auscultation bilaterally. Abdomen: Soft, nontender, nondistended. Extremities: No clubbing, cyanosis or edema. LABORATORY DATA: White count 7.5, hemoglobin 9.7, up from 7.4 after two units of blood. IMAGING STUDIES: Meckel's scan for gastrointestinal (GI) bleeding was negative. ASSESSMENT AND PLAN: The patient is a 29-year-old male with rectal bleeding secondary to internal hemorrhoids, reevaluated on colonoscopy by Dr. Orosco. Recommendation is to use Anusol suppositories four times a day, high-fiber diet. Avoid any sitting and straining. Would recommend getting him into the office this week and plan further outpatient banding. If for some reason, he continues to bleed in the next 24 hours to the point where he is not safe to be discharged home, then I can plan for banding while he is still in the hospital.
== END 2020-01-26 18:34 | disposition home or self-care (01) | DRG 226 ==
LOC: M ED 23:01 → M ED INP 23:02 → ENRESERVDT 01-21 04:15 → ENRESERVTM 01-21 04:15 → M MSPAV 01-21 05:39 → OBSVTOIN 01-21 15:40
PROVIDERS: ADMIT General Practice; ATTEND Internal Medicine
PROC: 0DJ08ZZ Inspection of Upper Intestinal Tract, Via Natural or Artificial Opening Endoscopic (ICD-10-PCS; principal; 2020-01-21 18:00)
PROC: 30233N1 Transfusion of Nonautologous Red Blood Cells into Peripheral Vein, Percutaneous Approach (ICD-10-PCS; 2020-01-22)
PROC: 0DJD8ZZ Inspection of Lower Intestinal Tract, Via Natural or Artificial Opening Endoscopic (ICD-10-PCS; 2020-01-22)
PROC: 06LY3ZC Occlusion of Hemorrhoidal Plexus, Percutaneous Approach (ICD-10-PCS; 2020-01-25)
DX: K64.9 Unspecified hemorrhoids (principal); D62 Acute posthemorrhagic anemia; K62.5 Hemorrhage of anus and rectum; F31.9 Bipolar disorder, unspecified; F90.9 Attention-deficit hyperactivity disorder, unspecified type; F41.9 Anxiety disorder, unspecified; F42.9 Obsessive-compulsive disorder, unspecified; J45.909 Unspecified asthma, uncomplicated; Z88.1 Allergy status to other antibiotic agents; Z88.8 Allergy status to other drugs, medicaments and biological substances; F17.200 Nicotine dependence, unspecified, uncomplicated

== ENCOUNTER → 2020-01-30 | Outpatient (CLI) | payer OTHER ==
[~2020-01-30] MED LIST changes: +FERR325T3 PO; +PREP1SUP PR
[2020-01-30 18:15] LABS: HEMATOCRIT 26.2 % (42.0-52.0); HEMOGLOBIN 8.3 g/dl (13.5-17.5)
== END ==
LOC: M WUC 16:46
PROVIDERS: ATTEND Internal Medicine
DX: K64.9 Unspecified hemorrhoids (principal); D50.0 Iron deficiency anemia secondary to blood loss (chronic)

== ENCOUNTER → 2020-06-02 | Outpatient (REF) | payer OTHER, MEDICAID ==
[2020-06-02 18:45] LABS: BASO # 0.1 10^3/uL (0.0-0.2); BASO % 1.3 % (0.0-1.0); EOS # 0.4 10^3/uL (0.0-0.5); HEMATOCRIT 41.7 % (42.0-52.0); HEMOGLOBIN 12.6 g/dl (13.5-17.5); LYMPH # 2.4 10^3/uL (1.5-5.0); LYMPH % 37.5 % (24.0-44.0); MEAN CORPUSCULAR HEMOGLOBIN 23.8 pg (27.0-33.0); MEAN CORPUSCULAR HGB CONC 30.2 g/dl (32.0-36.5); MEAN CORPUSCULAR VOLUME 78.8 fl (80.0-96.0); MONO # 0.8 10^3/uL (0.0-0.8); MONO % 13.2 % (0.0-5.0); NEUTROPHILS # 2.6 10^3/uL (1.5-8.5); NEUTROPHILS % 40.8 % (36.0-66.0); PLATELET COUNT, AUTOMATED 324 10^3/uL (150-450); RED BLOOD COUNT 5.29 10^6/uL (4.30-6.10); WHITE BLOOD COUNT 6.3 10^3/uL (4.0-10.0)
[2020-06-02 19:19] LABS: ALBUMIN 4.2 GM/DL (3.2-5.2); ALT/SGPT 20 U/L (12-78); AMYLASE 40 U/L (25-115); BILIRUBIN,TOTAL 0.5 MG/DL (0.2-1.0); BLOOD UREA NITROGEN 14 MG/DL (7-18); CALCIUM LEVEL 9.8 MG/DL (8.5-10.1); CARBON DIOXIDE LEVEL 26 MEQ/L (21-32); CHLORIDE LEVEL 108 MEQ/L (98-107); CREATININE FOR GFR 0.87 MG/DL (0.70-1.30); GLOMERULAR FILTRATION RATE > 60.0 (>60); GLUCOSE, FASTING 80 MG/DL (70-100); LIPASE 108 U/L (73-393); POTASSIUM SERUM 4.5 MEQ/L (3.5-5.1); SODIUM LEVEL 139 MEQ/L (136-145); THYROID STIMULATING HORMONE 0.755 uIU/ML (0.358-3.740); THYROXINE (T4) 9.6 UG/DL (4.5-12.0); TOTAL PROTEIN 7.7 GM/DL (6.4-8.2); TOTAL T3 99.8 NG/DL (60.0-181.0)
[2020-06-03 08:14] LABS: THYROID PEROXIDASE ANTIBODY < 28.0 U/ML (<60.0)
[2020-06-08 14:16] LABS: TESTOSTERONE %FREE+WEAKLY BOUN 15.5 % (9.0-46.0); TESTOSTERONE FREE+WEAKLY BOUND 97.5 ng/dL (40.0-250.0); TESTOSTERONE TOTAL 629 ng/dL (264-916)
== END ==
LOC: M LAB REF 17:38
PROVIDERS: ATTEND Family Medicine Addiction Medicine
DX: R68.82 Decreased libido (principal); R10.0 Acute abdomen; R63.5 Abnormal weight gain

== ENCOUNTER → 2020-06-29 | Outpatient (CLI) | payer OTHER ==
[~2020-06-29] MED LIST changes: +GASTROGRAFIN SOLUTION 30ML (Q9963) As Ordered ONE; +ISOVUE-370 76% 100ML VIAL As Ordered ONE
--- NOTE | 2020-08-22 10:24 | REP ---
CT OF THE ABDOMEN AND PELVIS WITH INTRAVENOUS (IV) AND BOWEL CONTRAST HISTORY: Acute abdominal pain. COMPARISON: 01/21/2020. FINDINGS: The visualized lung kellogg are unremarkable. The hepatic parenchyma is homogeneous. The gallbladder and pancreas are unremarkable. The spleen is normal in size and unremarkable except for a few tiny calcified granulomas. The right and left kidneys are unremarkable. The abdominal aorta is unremarkable. There is no periaortic adenopathy or mass. There is no bowel distention or obstruction. There is no ascites. No inflammatory changes in the mesentery. PELVIS: The appendix cannot be identified as a distinct structure. However, there is no pericecal phlegmon or abscess. The pelvic bowel loops and bladder are unremarkable. There is no pelvic lymph node enlargement or ascites. IMPRESSION: Essentially negative CT study of the abdomen and pelvis. A few calcified granulomas are incidentally identified in the spleen. Delay in reporting results from hospital computer malfunction as a result of ransomware. MTDD
== END ==
LOC: M RAD 12:15
PROVIDERS: ATTEND Family Medicine
DX: R10.0 Acute abdomen (principal)
CPT/HCPCS: 36415; 74177; 82306; 82728; 83550; 85025; Q9963; Q9967

== ENCOUNTER → 2020-08-15 | Outpatient (REF) | payer OTHER ==
[~2020-08-15] MED LIST changes: -GASTROGRAFIN SOLUTION 30ML (Q9963) As Ordered ONE; -ISOVUE-370 76% 100ML VIAL As Ordered ONE
[2020-08-15 18:51] LABS: BASO # 0.1 10^3/uL (0.0-0.2); BASO % 1.1 % (0.0-1.0); EOS # 0.5 10^3/uL (0.0-0.5); EOS % 8.7 % (0.0-3.0); HEMATOCRIT 42.6 % (42.0-52.0); HEMOGLOBIN 13.5 g/dl (13.5-17.5); LYMPH # 2.7 10^3/uL (1.5-5.0); LYMPH % 43.4 % (24.0-44.0); MEAN CORPUSCULAR HGB CONC 31.7 g/dl (32.0-36.5); MEAN CORPUSCULAR VOLUME 88.4 fl (80.0-96.0); MONO # 0.9 10^3/uL (0.0-0.8); NEUTROPHILS % 32.6 % (36.0-66.0); PLATELET COUNT, AUTOMATED 284 10^3/uL (150-450); RED BLOOD COUNT 4.82 10^6/uL (4.30-6.10); WHITE BLOOD COUNT 6.2 10^3/uL (4.0-10.0)
== END ==
LOC: M LAB REF 18:19
PROVIDERS: ATTEND Family Medicine Addiction Medicine
DX: N18.9 Chronic kidney disease, unspecified (principal); D63.8 Anemia in other chronic diseases classified elsewhere

== ENCOUNTER → 2020-09-01 | Outpatient (REF) | payer OTHER, MEDICAID ==
[2020-09-01 16:32] LABS: BASO # 0.1 10^3/uL (0.0-0.2); EOS # 0.4 10^3/uL (0.0-0.5); EOS % 7.2 % (0.0-3.0); HEMATOCRIT 38.8 % (42.0-52.0); HEMOGLOBIN 12.3 g/dl (13.5-17.5); LYMPH # 2.4 10^3/uL (1.5-5.0); LYMPH % 38.7 % (24.0-44.0); MEAN CORPUSCULAR HGB CONC 31.7 g/dl (32.0-36.5); MEAN CORPUSCULAR VOLUME 88.2 fl (80.0-96.0); MONO # 0.7 10^3/uL (0.0-0.8); MONO % 11.8 % (0.0-5.0); NEUTROPHILS # 2.5 10^3/uL (1.5-8.5); NEUTROPHILS % 41.1 % (36.0-66.0); PLATELET COUNT, AUTOMATED 327 10^3/uL (150-450); WHITE BLOOD COUNT 6.1 10^3/uL (4.0-10.0)
[2020-09-01 16:48] LABS: ALBUMIN 3.9 GM/DL (3.2-5.2); ALT/SGPT 21 U/L (12-78); BILIRUBIN,TOTAL 0.6 MG/DL (0.2-1.0); BLOOD UREA NITROGEN 17 MG/DL (7-18); CALCIUM LEVEL 9.7 MG/DL (8.5-10.1); CARBON DIOXIDE LEVEL 27 MEQ/L (21-32); CHLORIDE LEVEL 105 MEQ/L (98-107); CREATININE FOR GFR 0.85 MG/DL (0.70-1.30); FERRITIN 4 NG/ML (26-388); GLOMERULAR FILTRATION RATE > 60.0 (>60); GLUCOSE, FASTING 90 MG/DL (70-100); IRON (FE) 41 UG/DL (65-175); POTASSIUM SERUM 4.1 MEQ/L (3.5-5.1); SODIUM LEVEL 138 MEQ/L (136-145); TOTAL PROTEIN 7.2 GM/DL (6.4-8.2)
[2020-09-01 16:51] LABS: FOLATE 20.7 NG/ML; VITAMIN B12 LEVEL 432 PG/ML
== END ==
LOC: M LAB REF 16:06
PROVIDERS: ATTEND Nurse Practitioner Family
DX: E66.9 Obesity, unspecified (principal); D63.8 Anemia in other chronic diseases classified elsewhere

== ENCOUNTER → 2021-02-03 | Outpatient (REF) | payer OTHER, MEDICAID ==
[2021-02-03 17:52] LABS: HEMATOCRIT 41.9 % (42.0-52.0); HEMOGLOBIN 13.6 g/dl (13.5-17.5); MEAN CORPUSCULAR HEMOGLOBIN 29.4 pg (27.0-33.0); MEAN CORPUSCULAR HGB CONC 32.5 g/dl (32.0-36.5); MEAN CORPUSCULAR VOLUME 90.5 fl (80.0-96.0); PLATELET COUNT, AUTOMATED 278 10^3/uL (150-450); RED BLOOD COUNT 4.63 10^6/uL (4.30-6.10); WHITE BLOOD COUNT 6.6 10^3/uL (4.0-10.0)
[2021-02-03 18:16] LABS: ALT/SGPT 19 U/L (12-78); BILIRUBIN,TOTAL 0.3 MG/DL (0.2-1.0); BLOOD UREA NITROGEN 18 MG/DL (7-18); CALCIUM LEVEL 9.7 MG/DL (8.5-10.1); CARBON DIOXIDE LEVEL 28 MEQ/L (21-32); CHLORIDE LEVEL 106 MEQ/L (98-107); CHOLESTEROL LEVEL 192 MG/DL (<200); CHOLESTEROL RISK RATIO 3.147 (<5); CREATININE FOR GFR 0.88 MG/DL (0.70-1.30); FERRITIN 21 NG/ML (26-388); GLOMERULAR FILTRATION RATE > 60.0 (>60); GLUCOSE, FASTING 82 MG/DL (70-100); HDL CHOLESTEROL 61 MG/DL (>40); IRON (FE) 64 UG/DL (65-175); LDL CHOLESTEROL 115 MG/DL (<100); NON-HDL-C 131 MG/DL; PERCENT SATURATION 16.2 % (19.7-50.0); POTASSIUM SERUM 4.7 MEQ/L (3.5-5.1); SODIUM LEVEL 138 MEQ/L (136-145); TOTAL IRON BINDING CAPACITY 395 UG/DL (250-450); TOTAL PROTEIN 7.2 GM/DL (6.4-8.2); TRIGLYCERIDES LEVEL 78 MG/DL (<150)
[2021-02-03 18:24] LABS: VITAMIN B12 LEVEL 928 PG/ML
== END ==
LOC: M LAB REF 16:17
PROVIDERS: ATTEND Nurse Practitioner Family
DX: D50.9 Iron deficiency anemia, unspecified (principal)

== ENCOUNTER → 2021-03-13 | Outpatient (CLI) | payer OTHER ==
[~2021-03-13] MED LIST changes: +COVI100V IM
--- NOTE | 2021-03-14 07:39 | REP ---
INDICATION: VARICOSE VEINS W/ PAIN COMPARISON: None. TECHNIQUE: Menchaca scale and color Doppler evaluation of the bilateral lower extremities using linear high frequency transducer including reflux evaluation. FINDINGS: Ultrasound examination of the right and left lower extremity deep venous structures from the common femoral vein to the popliteal vein demonstrates normal compressibility flow and wave patterns in response to respiration and augmentation. There is no evidence for deep venous thrombosis. Reflux evaluation of the right lower extremity demonstrates no reflux through the deep or superficial system. A large collateral vessel is identified extending from the mid greater saphenous vein extending towards superficial collateral vessels without reflux. Reflux evaluation of the left lower extremity demonstrates no reflux through the deep or superficial system. A collateral vessel from the mid greater saphenous vein extends towards the popliteal fossa with multiple collaterals without reflux. IMPRESSION: No evidence for deep venous thrombosis. No evidence for reflux. As above. <Electronically signed by Wilder Jaimes > 03/14/21 [id number]
== END ==
LOC: M RAD 12:34
PROVIDERS: ATTEND Physician Assistant
DX: I83.813 Varicose veins of bilateral lower extremities with pain (principal)

== ENCOUNTER → 2023-06-19 | Outpatient (REF) | payer OTHER ==
[~2023-06-19] MED LIST changes: -MOME50SP NARES; +NASO50SP3 NARES
[2023-06-19 18:11] LABS: BASO # 0.1 10^3/uL (0.0-0.2); BASO % 1.4 % (0.0-1.0); EOS # 0.7 10^3/uL (0.0-0.5); EOS % 8.4 % (0.0-3.0); HEMATOCRIT 43.7 % (42.0-52.0); LYMPH # 1.8 10^3/uL (1.5-5.0); MEAN CORPUSCULAR HEMOGLOBIN 29.9 pg (27.0-33.0); MEAN CORPUSCULAR VOLUME 93.2 fl (80.0-96.0); MONO # 1.2 10^3/uL (0.0-0.8); MONO % 14.5 % (2.0-8.0); NEUTROPHILS # 4.3 10^3/uL (1.5-8.5); NEUTROPHILS % 53.4 % (36.0-66.0); PLATELET COUNT, AUTOMATED 320 10^3/uL (150-450); RED BLOOD COUNT 4.69 10^6/uL (4.30-6.10)
[2023-06-19 18:39] LABS: ALBUMIN 3.7 G/DL (3.2-5.2); ALKALINE PHOSPHATASE 74 U/L (46-116); ALT/SGPT 14 U/L (7.0-40); AST/SGOT 10 U/L (<34); BILIRUBIN,TOTAL 0.4 MG/DL (0.3-1.2); BLOOD UREA NITROGEN 13 MG/DL (9-23); CALCIUM LEVEL 9.4 MG/DL (8.5-10.1); CARBON DIOXIDE LEVEL 26 MMOL/L (20-31); CHLORIDE LEVEL 103 MMOL/L (98-107); CHOLESTEROL LEVEL 159 MG/DL (<200); CREATININE FOR GFR 0.88 MG/DL (0.70-1.30); GLOMERULAR FILTRATION RATE > 60.0 (>60); GLUCOSE, FASTING 89 MG/DL (60-100); LDL CHOLESTEROL 85.6 MG/DL (<100); POTASSIUM SERUM 4.4 MMOL/L (3.5-5.1); SODIUM LEVEL 136 MMOL/L (136-145); THYROID STIMULATING HORMONE 0.422 uIU/ML (0.55-4.78); TOTAL 25(OH) VITAMIN D 34.1 NG/ML (20.0-100.0); TOTAL PROTEIN 6.7 G/DL (5.7-8.2); TRIGLYCERIDES LEVEL 62 MG/DL (<150)
[2023-06-19 18:46] LABS: HEMOGLOBIN A1c 4.9 % (4.0-6.0)
== END ==
LOC: M LAB REF 17:34
PROVIDERS: ATTEND Nurse Practitioner Family
DX: Z13.228 Encounter for screening for other metabolic disorders (principal)

== ENCOUNTER → 2023-07-12 | Outpatient (REF) | payer OTHER ==
[2023-07-12 18:45] LABS: FREE T4 1.21 NG/DL (0.89-1.76); THYROID STIMULATING HORMONE 1.077 uIU/ML (0.55-4.78)
== END ==
LOC: M LAB REF 16:15
PROVIDERS: ATTEND Nurse Practitioner Family
DX: R89.1 Abnormal level of hormones in specimens from other organs, systems and tissues (principal)

== ENCOUNTER → 2023-10-01 | Outpatient (CLI) | payer OTHER | LOC: M RAD 11:57 | PROVIDERS: ATTEND Physician Assistant | DX: I83.812 Varicose veins of left lower extremity with pain (principal); R93.6 Abnormal findings on diagnostic imaging of limbs ==

== ENCOUNTER → 2023-12-17 | Outpatient (REF) | payer OTHER ==
[~2023-12-17] MED LIST changes: +ADDE25CA; +METH-1022
== END ==
LOC: M LAB REF 16:15
PROVIDERS: ATTEND Nurse Practitioner Family
DX: R76.0 Raised antibody titer (principal)

== ENCOUNTER 2025-02-22 15:04 | Emergency (ER) | payer OTHER ==
[~2025-02-22] VITALS: Ht 190.5 cm; Wt 115.9 kg
[2025-02-22 15:26] VITALS: BP 140/69; TEMP 98.8; O2SAT 99
== END 2025-02-22 18:54 | disposition left against medical advice (07) ==
LOC: M ED 15:04
DX: Z53.21 Procedure and treatment not carried out due to patient leaving prior to being seen by health care provider (principal)